=== PATIENT | female | born 1985 | race Caucasian/White ===

== ENCOUNTER 2018-01-26 09:52 | Emergency (ER) | payer OTHER ==
[~2018-01-26] VITALS: Ht 177.8 cm; Wt 56.7 kg
[2018-01-26] MEDS ORDERED: IBUP800 PO (11:39)
[2018-01-26] MEDS ORDERED: NYST237S MT (11:39)
[2018-01-26] MEDS ORDERED: PENVK500 PO (11:39)
[2018-09-14] MEDS ORDERED: IBUP800 PO (11:17)
[2018-09-14] MEDS ORDERED: Amoxicillin500 MG PO (11:17)
== END 2018-01-26 11:50 | disposition home or self-care (01) ==
LOC: ER 09:52
DX: K04.7 Periapical abscess without sinus (principal); F17.200 Nicotine dependence, unspecified, uncomplicated
CPT/HCPCS: 99283

== ENCOUNTER 2022-09-25 01:07 | Emergency (ER) | payer OTHER ==
[~2022-09-25] VITALS: Ht 175.3 cm; Wt 56.7 kg
[~2022-09-25 01:07] MED LIST: Amoxicillin500 MG PO; IBUP800 PO; NYST237S MT; PENVK500 PO
[2022-09-25] MEDS ORDERED: Bactrim Ds Tab1 EACH PO (02:42)
== END 2022-09-25 03:05 | disposition home or self-care (01) ==
LOC: ER 01:07
DX: S50.311A Abrasion of right elbow, initial encounter (principal); S51.011D Laceration without foreign body of right elbow, subsequent encounter; F15.10 Other stimulant abuse, uncomplicated; F17.200 Nicotine dependence, unspecified, uncomplicated; X58.XXXA Exposure to other specified factors, initial encounter
CPT/HCPCS: A9270